=== PATIENT | male | born 1980 | race Caucasian/White ===

== ENCOUNTER 2019-12-14 10:57 | Emergency (ER) | payer OTHER ==
[2019-12-14 11:19] VITALS: TEMP 98.6; BMI 28.8
--- NOTE | 2019-12-14 13:13 | PDOC ---
History of Present Illness - General Chief Complaint: Lightheaded Stated Complaint: LIGHTHEADED Time Seen by Provider: 12/14/19 11:35 - History of Present Illness Initial Comments: 12/14/19 12:57 HPI 39 y/o M no significant medical hx, presents to the ED with episodes of vertigo since yesterday. pt was seen at urgent care yesterday, where he was given meclizine and was instructed to come to hospital. episodes occur when patient moves his head or if he stands up from sitting/walks around. Episodes resolve if he sits down and lies still. pt denies any fevers, chills, headaches, nausea, vomiting, neck pain, head trauma, tinnitus, ear pain, weakness, numbness or tingling. PMHx: as noted above ROS: as noted SHx: Denies Etoh, IVDA, tobacco use Allergies: Penicillin ROS: GENERAL/CONSTITUTIONAL: No fever or chills. No weakness. HEAD, EYES, EARS, NOSE AND THROAT: No change in vision. No ear pain or discharge. No sore throat. CARDIOVASCULAR: No chest pain or shortness of breath RESPIRATORY: No cough, wheezing, or hemoptysis. GASTROINTESTINAL: No nausea, vomiting, diarrhea or constipation. GENITOURINARY: No dysuria, frequency, or change in urination. MUSCULOSKELETAL: No joint or muscle swelling or pain. No neck or back pain. SKIN: No rash NEUROLOGIC: +vertigo, no numbness or tingling. ENDOCRINE: No increased thirst. No abnormal weight change HEMATOLOGIC/LYMPHATIC: No anemia, easy bleeding, or history of blood clots. ALLERGIC/IMMUNOLOGIC: No hives or skin allergy. PE: GENERAL: Awake, alert, and fully oriented, in no acute distress HEAD: No signs of trauma, normocephalic, atraumatic EYES: PERRLA, EOM(horizontal nystagmus), sclera anicteric, conjunctiva clear ENT: Auricles normal inspection, hearing grossly normal, nares patent, oropharynx clear without exudates. Moist mucosa NECK: Normal ROM, supple, no lymphadenopathy, JVD, or masses LUNGS: No distress, speaks full sentences, clear to auscultation bilaterally HEART: Regular rate and rhythm, normal S1 and S2, no murmurs, rubs or gallops, peripheral pulses normal and equal bilaterally. ABDOMEN: Soft, nontender, normoactive bowel sounds. No guarding, no rebound. No masses EXTREMITIES : Normal inspection, Normal range of motion, no edema. No clubbing or cyanosis NEUROLOGICAL: Cranial nerves II through XII grossly intact.5/5 strength upper and lower extremities avani hallpike: horizontal nystagmus when head turned to patients left. SKIN: Warm, Dry, normal turgor, no rashes or lesions noted MDM DDx including but not limited to: bppv, brain mass, hemorrhage, Meniere's, vestibular neuritis. Workup: head CT TX: 25mg po meclizine Scores ED course Head CT There is minimal volume loss mainly in the high convexity which is nonspecific. The ventricles and basal cisterns appear unremarkable. No mass lesion, gross acute infarct or intracranial hemorrhage are identified. Visualized paranasal sinuses and mastoid air cells are well-aerated. Moderate deviation of the nasal septum towards the left. The calvarium is intact. Impression: Minimal volume loss which is nonspecific without CT evidence of acute intracranial pathology. Correlate can be to determine further evaluation and follow-up. Moderate deviation of the nasal septum towards the left. pt reports improvement in his vertigo after meclizine. counselled about importance of taking the medication as prescribed and following up with neurology. given copy of his imaging Past History - Medical History Allergies/Adverse Reactions: Allergies Allergy/AdvReac Type Severity Reaction Status Date / Time Penicillins Allergy Verified 12/14/19 11:16 - Psycho-Social/Smoking History Smoking History: Never smoked - Substance Abuse Hx (Audit-C & DAST Scrn) How often the patient has a drink containing alcohol: Never Score: In Men: 4 or > Positive; In Women: 3 or > Positive: 0 Screen Result (Pos requires Nsg. Audit-10AR): Negative *Physical Exam - Vital Signs Last Vital Signs Temp Pulse Resp BP Pulse Ox 98.6 F 64 18 129/88 100 12/14/19 11:16 12/14/19 11:16 12/14/19 11:16 12/14/19 11:16 12/14/19 11:16 ED Treatment Course - RADIOLOGY Radiology Studies Ordered: Category Date Time Status HEAD CT WITHOUT CONTRAST [CT] Stat CT Scan 12/14/19 12:17 Ordered Discharge - Discharge Information Problems reviewed: Yes Clinical Impression/Diagnosis: Vertigo Condition: Stable Disposition: HOME - Follow up/Referral Referrals: Diego Ferreira MD [Staff Physician] - Cherelle Carpenter MD [Staff Physician] - Joe Witt MD [Staff Physician] - - Patient Discharge Instructions Patient Printed Discharge Instructions: DI for Vertigo, DI for Benign Paroxysmal Positional Vertigo Additional Instructions: 1) Please follow-up with your primary care doctor in the next 1-2 days and with the neurologist whose information we have attached. Please call on Monday for an appointment. If you cannot follow-up with your primary care doctor please return to the ED for any urgent issues. 2) You were given a copy of the tests performed today. Please bring the results with you and review them with your primary care doctor. 3) If you have any worsening of symptoms or any other concerns please return to the ED immediately. 4) Please continue taking your home medications as directed. your meclizine should be taken 3 times a day as prescribed. 1) Heather un seguimiento con salguero mdico de atencin primaria en los prximos 1-2 wheeler y con el neurlogo cuya informacin hemos adjuntado. Llame el lunes para concertar sharon renée. Si no puede hacer un seguimiento con salguero mdico de atencin primaria, regrese al servicio de urgencias por cualquier problema urgente. 2) Se le entreg sharon copia de las pruebas realizadas hoy. Traiga los resultados y revselos con salguero mdico de atencin primaria. 3) Si tiene algn empeoramiento de los sntomas o cualquier otra inquietud, regrese al servicio de urgencias de inmediato. 4) Contine tomando justin medicamentos caseros segn las indicaciones. salguero meclizina debe tomarse 3 veces al da segn lo prescrito. - Post Discharge Activity
--- NOTE | 2019-12-14 14:11 | PDOC ---
Attending Attestation - Resident Resident Name: Иван De León - ED Attending Attestation I have performed the following: I have examined & evaluated the patient, The case was reviewed & discussed with the resident, I agree w/resident's findings & plan - HPI HPI: 12/14/19 14:07 39 y/o M no significant medical hx, presents to the ED with episodes of vertigo since yesterday. pt was seen at urgent care yesterday, where he was given mecli zine and was instructed to come to hospital. episodes occur when patient moves his head of if he stands up from sitting/walks around. episodes resolve if he sits down and lies still. pt denies any fevers, chills, headaches, nausea, vomiting, neck pain, head trauma, tinnitus, ear pain, weakness, numbness or tingling. - Physicial Exam PE: 12/14/19 14:07 Agree with the resident's HPI and PE as documented in the electronic medical record. NAD, well appearing, oriented appropriately. CN II to XII grossly intact. b/l T.M clear. EOMI, PERRL, nl conjunctiva, anicteric; neck supple. lungs clear, RRR, abdomen soft nontender. No rebound, no guarding. Back nontender. NORRIS x4, no focal neuro deficits. No peripheral edema. normal color for ethnicity, WWP. 5/5 prox and distal strength in all extrem, no pronator drift. b/l fatiguable nystagmus, no ataxia, finger to nose bilaterally equal and symmetric. SILT in all extrem speech clear. - Medical Decision Making 12/14/19 14:08 Vital Signs Temp Pulse Resp BP Pulse Ox 98.6 F 64 18 129/88 100 12/14/19 11:16 12/14/19 11:16 12/14/19 11:16 12/14/19 11:16 12/14/19 11:16 vitals reviewed wnl. normotensive ddx vertigo, peripheral vs central. BPPV, meniere's disease, cerumen impaction, labrynthitis no focal neuro deficits, gait is stable. CT head to eval for cva/mass no cp or sob. no syncope. no headache dx'd with vertigo yesterday, did not take the meclizine today will have pt take his meclizine 25mg x1 as he is symptomatic. Pt to be discharged in stable condition. Patient and family made aware of clinical impression, treatment recommendations and disposition plan, return precautions discussed (including but not limited to new or persistent/worsening symptoms, pain, fevers, or signs of infection, chest pain, respiratory distress, inability to tolerate oral intake, dehydration, syncope, or neurologic changes). Follow up with PMD and/or neuro specialist as recommended, follow up information provided, take medications as instructed for duration of time. continue with supportive care, avoid triggers and precipitants. All questions answered to patient's satisfaction and expressed understanding and comfort with this. At the time of discharge, the patient is alert, clinically improved, tolerating po and verbalizes understanding of instructions, satisfied with the care received and felt comfortable with the plan. Patient does not suffer from an acute life- threatening medical condition at this time and is safe for outpatient follow- up. 12/14/19 14:10 Discharge - Discharge Information Problems reviewed: Yes Clinical Impression/Diagnosis: Vertigo Condition: Stable - Admission No - Follow up/Referral Referrals: Diego Ferreira MD [Staff Physician] - Joe Witt MD [Staff Physician] - Cherelle Carpenter MD [Staff Physician] - - Patient Discharge Instructions - Post Discharge Activity
[2019-12-14 15:52] VITALS: BP 134/79; PULSE 66
== END 2019-12-14 15:52 | disposition home or self-care (01) ==
LOC: JER 10:57
DX: H81.10 Benign paroxysmal vertigo, unspecified ear (principal)
CPT/HCPCS: 70450-TC; 99284-25